=== PATIENT | male | born 1985 | race Caucasian/White ===

== ENCOUNTER 2021-03-14 14:02 | Emergency (ER) | payer MEDICAID ==
[2021-03-14 14:20] VITALS: O2SAT 97
[2021-03-14] MEDS ORDERED: Sodium Chloride 0.9% 1000 ML 1,000 ML IV STA (14:21)
[2021-03-14] MEDS ORDERED: Sodium Chloride 0.9% 1000 ML 1,000 ML ONE (14:27)
--- NOTE | 2021-03-14 14:54 | XRAY ---
Indication: Fever, cough, and short of breath. Comparison: None Portable chest hyperinflated and clear. Heart not enlarged. Bony thorax intact. Impression: Nonacute hyperinflated chest.
[2021-03-14 14:59] LABS: Hematocrit 48.1 % (42-50); Hemoglobin 15.8 gm/dl (12.5-18.0); Mean Cell Volume 87.1 fl (78-100); Mean Corpuscular Hemoglobin 28.6 pg (26-32); Mean Corpuscular Hgb Concent. 32.8 g/dl (32-36); Mean Platelet Volume 9.4 fl (7.5-11.0); Platelet Count 213 K/mm3 (150-450); Red Blood Count 5.52 M/mm3 (4.1-5.6); White Blood Count 7.6 K/mm3 (4.0-10.5)
[2021-03-14 15:11] LABS: INR 1.1 (0.8-3.0)
--- NOTE | 2021-03-14 15:16 | ERPHSYRPT ---
- History of Present Illness Time Seen by Provider: 03/14/21 14:25 Source: patient Exam Limitations: no limitations Patient Subjective Stated Complaint: pt here for covid like sypmtoms started yesterday morning, cough, aches, headache, nasuea, lost of taste and smell Triage Nursing Assessment: pt alert, walked in. resp easy, skin w/d/p, face mask in place, Physician History: Patient is a 35-year-old male who has been sick for 2 days. He complains of abdominal pain which has improved somewhat today but was worse yesterday he is also had repeated nausea vomiting. He has entire body aches he has a headache he has lost his sense of taste and smell he has had fever and sweats. 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 Associated Symptoms: abdominal pain, diaphoresis, headache, muscle aches, nausea/vomiting Hx Influenza Vaccination/Date Given: No Hx Pneumococcal Vaccination/Date Given: No Immunizations Up to Date: Yes Travel Risk - International Travel Have you traveled outside of the country in past 3 weeks: No - Coronavirus Screening Are you exhibiting any of the following symptoms?: Yes Symptoms: Cough: New Onset, Vomiting/Diarrhea, Loss of Taste or Smell, Headache s/Body Aches/Fatigue Close contact with a COVID-19 positive Pt in past 14-21 Days: No - Vaccine Status Have you recieved a Covid-19 vaccination: No - Review of Systems Constitutional: No Fever, No Chills Eyes: No Symptoms Ears, Nose, & Throat: No Symptoms Respiratory: No Cough, No Dyspnea Cardiac: No Chest Pain, No Edema, No Syncope Abdominal/Gastrointestinal: No Abdominal Pain, No Nausea, No Vomiting, No Diarrhea Genitourinary Symptoms: No Dysuria Musculoskeletal: No Back Pain, No Neck Pain Skin: No Rash Neurological: No Dizziness, No Focal Weakness, No Sensory Changes Psychological: No Symptoms Endocrine: No Symptoms All Other Systems: Reviewed and Negative - Past Medical History Pertinent Past Medical History: No - Past Surgical History Past Surgical History: No - Social History Smoking Status: Current every day smoker Exposure to second hand smoke: Yes Drug Use: none Patient Lives Alone: No - Nursing Vital Signs Nursing Vital Signs: Initial Vital Signs Temperature 98.7 F 03/14/21 14:18 Pulse Rate 107 H 03/14/21 14:18 Respiratory Rate 16 03/14/21 14:18 Blood Pressure 122/103 03/14/21 14:18 O2 Sat by Pulse Oximetry 97 03/14/21 14:18 Pain Scale Pain Intensity 4 - Physical Exam General Appearance: mild distress, alert Eye Exam: PERRL/EOMI ENT Exam: normal ENT inspection, No pharyngeal erythema, No tonsillar exudate Neck Exam: supple, full range of motion, No meningismus Respiratory Exam: normal breath sounds, lungs clear, no respiratory distress Cardiovascular/Chest Exam: normal heart sounds, regular rate/rhythm, No murmur, No edema Gastrointestinal/Abdominal Exam: soft, non tender, no distention Extremity Exam: non-tender, normal range of motion, normal inspection, normal capillary refill Neurologic Exam: alert, oriented x 3, cooperative, 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, normal mood/affect, sensation nml, No motor deficits Skin Exam: normal color, warm, dry, No rash SpO2: 97 - Course Nursing assessment & vital signs reviewed: Yes - Radiology Exams Chest X-ray Interpretation: Reviewed by me, Negative Ordered Tests: Active Orders 24 hr Category Date Time Status EKG-ER Only STAT Care 03/14/21 14:21 Active IV Insertion STAT Care 03/14/21 14:21 Active CHEST 1 VIEW (PORTABLE) Stat Exams 03/14/21 14:22 Completed BLOOD CULTURE Stat Lab 03/14/21 14:47 Received CBC W DIFF Stat Lab 03/14/21 14:35 Completed CMP Stat Lab 03/14/21 14:35 Completed D-DIMER QUANTITATIVE Stat Lab 03/14/21 14:35 Completed Lactic Acid Stat Lab 03/14/21 14:21 Completed MAGNESIUM Stat Lab 03/14/21 14:35 Completed Manual Differential NC Stat Lab 03/14/21 14:35 Completed NT PRO BNP Stat Lab 03/14/21 14:35 Completed PROTIME WITH INR Stat Lab 03/14/21 14:35 Completed TROPONIN Q3H Lab 03/14/21 14:35 Completed TROPONIN Q3H Lab 03/14/21 17:30 Ordered TROPONIN Q3H Lab 03/14/21 20:30 Ordered TROPONIN Q3H Lab 03/14/21 23:30 Ordered TROPONIN Q3H Lab 03/15/21 02:30 Ordered UA W/RFX UR CULTURE Stat Lab 03/14/21 14:30 Completed Medication Summary Discontinued Medications Generic Name Dose Route Start Last Admin Trade Name Flynn PRN Reason Stop Dose Admin Sodium Chloride 1,000 mls @ 999 mls/hr 03/14/21 14:21 03/14/21 15:29 Sodium Chloride 0.9% 1000 Ml IV 03/14/21 15:21 Infused .Q1H1M STA Infusion Sodium Chloride Confirm 03/14/21 14:27 Sodium Chloride 0.9% 1000 Ml Administered 03/14/21 14:28 Dose 1,000 mls @ ud .ROUTE .[facility] Lab/Rad Data: Laboratory Result Diagrams 03/14/21 14:35 03/14/21 14:35 Laboratory Results 03/14/21 03/14/21 03/14/21 Range/Units 14:35 14:35 14:35 WBC (4.0-10.5) K/mm3 RBC (4.1-5.6) M/mm3 Hgb (12.5-18.0) gm/dl Hct (42-50) % MCV (78-100) fl MCH (26-32) pg MCHC (32-36) g/dl RDW (11.5-14.0) % Plt Count (150-450) K/mm3 MPV (7.5-11.0) fl PT 13.0 H (9.4-12.5) SECONDS INR 1.10 (0.8-3.0) D-Dimer 654 H* (215-500) ng/mL Sodium 132 L (137-145) mmol/L Potassium 3.7 (3.5-5.1) mmol/L Chloride 96 L (98-107) mmol/L Carbon Dioxide 26 (22-30) mmol/L Anion Gap 13.5 (5-15) MEQ/L BUN 12 (9-20) mg/dL Creatinine 1.21 (0.66-1.25) mg/dL Estimated GFR > 60.0 ML/MIN Glucose 110 H (74-106) mg/dL Lactic Acid (0.4-2.0) Calcium 8.9 (8.4-10.2) mg/dL Magnesium 1.5 L (1.6-2.3) mg/dL Total Bilirubin 0.50 (0.2-1.3) mg/dL AST 36 (17-59) U/L ALT 22 (0-50) U/L Alkaline Phosphatase 68 (38-126) U/L Troponin I < 0.012 (0.000-0.034) ng/mL NT-Pro-B Natriuret Pep 19.7 (0-450) pg/mL Serum Total Protein 7.6 (6.3-8.2) g/dL Albumin 4.4 (3.5-5.0) g/dL Urine Color (YELLOW) Urine Appearance (CLEAR) Urine pH (5-6) Ur Specific [place] (1.005-1.025) Urine Protein (Negative) Urine Ketones (NEGATIVE) Urine Blood (0-5) Bin/ul Urine Nitrite (NEGATIVE) Urine Bilirubin (NEGATIVE) Urine Urobilinogen (0-1) mg/dL Ur Leukocyte Esterase (NEGATIVE) Urine WBC (Auto) (0-5) /HPF Urine RBC (Auto) (0-2) /HPF U Epithel Cells (Auto) (FEW) /HPF Urine Bacteria (Auto) (NEGATIVE) /HPF Urine Mucus (Auto) (NEGATIVE) /HPF Urine Culture Reflexed (NO) Urine Glucose (NEGATIVE) mg/dL Influenza Type A Ag (NEGATIVE) Influenza Type B Ag (NEGATIVE) RSV (PCR) (Negative) SARS-CoV-2 (PCR) (NEGATIVE) 03/14/21 03/14/21 03/14/21 Range/Units 14:35 14:30 14:30 WBC 7.6 (4.0-10.5) K/mm3 RBC 5.52 (4.1-5.6) M/mm3 Hgb 15.8 (12.5-18.0) gm/dl Hct 48.1 (42-50) % MCV 87.1 (78-100) fl MCH 28.6 (26-32) pg MCHC 32.8 (32-36) g/dl RDW 14.0 (11.5-14.0) % Plt Count 213 (150-450) K/mm3 MPV 9.4 (7.5-11.0) fl PT (9.4-12.5) SECONDS INR (0.8-3.0) D-Dimer (215-500) ng/mL Sodium (137-145) mmol/L Potassium (3.5-5.1) mmol/L Chloride (98-107) mmol/L Carbon Dioxide (22-30) mmol/L Anion Gap (5-15) MEQ/L BUN (9-20) mg/dL Creatinine (0.66-1.25) mg/dL Estimated GFR ML/MIN Glucose (74-106) mg/dL Lactic Acid (0.4-2.0) Calcium (8.4-10.2) mg/dL Magnesium (1.6-2.3) mg/dL Total Bilirubin (0.2-1.3) mg/dL AST (17-59) U/L ALT (0-50) U/L Alkaline Phosphatase (38-126) U/L Troponin I (0.000-0.034) ng/mL NT-Pro-B Natriuret Pep (0-450) pg/mL Serum Total Protein (6.3-8.2) g/dL Albumin (3.5-5.0) g/dL Urine Color YELLOW (YELLOW) Urine Appearance CLEAR (CLEAR) Urine pH 6.0 (5-6) Ur Specific [place] 1.017 (1.005-1.025) Urine Protein NEGATIVE (Negative) Urine Ketones NEGATIVE (NEGATIVE) Urine Blood SMALL (0-5) Bin/ul Urine Nitrite NEGATIVE (NEGATIVE) Urine Bilirubin NEGATIVE (NEGATIVE) Urine Urobilinogen 2 (0-1) mg/dL Ur Leukocyte Esterase NEGATIVE (NEGATIVE) Urine WBC (Auto) 0-2 (0-5) /HPF Urine RBC (Auto) 3-5 (0-2) /HPF U Epithel Cells (Auto) NONE (FEW) /HPF Urine Bacteria (Auto) NONE (NEGATIVE) /HPF Urine Mucus (Auto) SLIGHT (NEGATIVE) /HPF Urine Culture Reflexed NO (NO) Urine Glucose NEGATIVE (NEGATIVE) mg/dL Influenza Type A Ag NEGATIVE (NEGATIVE) Influenza Type B Ag NEGATIVE (NEGATIVE) RSV (PCR) NEGATIVE (Negative) SARS-CoV-2 (PCR) POSITIVE A (NEGATIVE) 03/14/21 Range/Units 14:21 WBC (4.0-10.5) K/mm3 RBC (4.1-5.6) M/mm3 Hgb (12.5-18.0) gm/dl Hct (42-50) % MCV (78-100) fl MCH (26-32) pg MCHC (32-36) g/dl RDW (11.5-14.0) % Plt Count (150-450) K/mm3 MPV (7.5-11.0) fl PT (9.4-12.5) SECONDS INR (0.8-3.0) D-Dimer (215-500) ng/mL Sodium (137-145) mmol/L Potassium (3.5-5.1) mmol/L Chloride (98-107) mmol/L Carbon Dioxide (22-30) mmol/L Anion Gap (5-15) MEQ/L BUN (9-20) mg/dL Creatinine (0.66-1.25) mg/dL Estimated GFR ML/MIN Glucose (74-106) mg/dL Lactic Acid 1.1 (0.4-2.0) Calcium (8.4-10.2) mg/dL Magnesium (1.6-2.3) mg/dL Total Bilirubin (0.2-1.3) mg/dL AST (17-59) U/L ALT (0-50) U/L Alkaline Phosphatase (38-126) U/L Troponin I (0.000-0.034) ng/mL NT-Pro-B Natriuret Pep (0-450) pg/mL Serum Total Protein (6.3-8.2) g/dL Albumin (3.5-5.0) g/dL Urine Color (YELLOW) Urine Appearance (CLEAR) Urine pH (5-6) Ur Specific [place] (1.005-1.025) Urine Protein (Negative) Urine Ketones (NEGATIVE) Urine Blood (0-5) Bin/ul Urine Nitrite (NEGATIVE) Urine Bilirubin (NEGATIVE) Urine Urobilinogen (0-1) mg/dL Ur Leukocyte Esterase (NEGATIVE) Urine WBC (Auto) (0-5) /HPF Urine RBC (Auto) (0-2) /HPF U Epithel Cells (Auto) (FEW) /HPF Urine Bacteria (Auto) (NEGATIVE) /HPF Urine Mucus (Auto) (NEGATIVE) /HPF Urine Culture Reflexed (NO) Urine Glucose (NEGATIVE) mg/dL Influenza Type A Ag (NEGATIVE) Influenza Type B Ag (NEGATIVE) RSV (PCR) (Negative) SARS-CoV-2 (PCR) (NEGATIVE) - Progress Progress: unchanged - Departure Departure Disposition: Home Clinical Impression: COVID-19 Condition: Good Critical Care Time: No Referrals: DOCTOR,NO FAMILY [Primary Care Provider] - Follow up/PCP as directed Instructions: Coronavirus Disease 2019 (COVID-19) (DC) Prescriptions: Dexamethasone 4 mg [Decadron 4 MG] 8 mg PO DAILY 7 Days #14 tablet Doxycycline Hyclate 100 mg [Vibramycin 100 MG] 100 mg PO BID #14 tab
[2021-03-14 15:26] LABS: ALBUMIN 4.4 g/dL (3.5-5.0); ALKALINE PHOSPHATASE 68 U/L (38-126); ANION GAP 13.5 MEQ/L (5-15); BLOOD UREA NITROGEN 12 mg/dL (9-20); CHLORIDE 96 mmol/L (98-107); Calcium 8.9 mg/dL (8.4-10.2); Carbon Dioxide 26 mmol/L (22-30); Creatinine 1 1.21 mg/dL (0.66-1.25); EST GLOMERULAR FILTRATION RATE > 60.0 ML/MIN; Glucose 110 mg/dL (74-106); MAGNESIUM 1.5 mg/dL (1.6-2.3); NT PRO BNP 19.7 pg/mL (0-450); Potassium 3.7 mmol/L (3.5-5.1); SGOT/AST 36 U/L (17-59); SGPT/ALT 22 U/L (0-50); SODIUM 132 mmol/L (137-145); Total Protein 7.6 g/dL (6.3-8.2)
[2021-03-14 15:38] LABS: INFLUENZA A NEGATIVE (NEGATIVE); INFLUENZA B NEGATIVE (NEGATIVE); RESPIRATORY SYNCTIAL VIRUS NEGATIVE (Negative)
[2021-03-14 15:47] LABS: SARS-CoV-2 Xpert Express POSITIVE (NEGATIVE)
[2021-03-14 15:49] LABS: Appearance CLEAR (CLEAR); Bilirubin NEGATIVE (NEGATIVE); Blood SMALL Ery/ul (0-5); Glucose NEGATIVE (NEGATIVE); Ketones NEGATIVE (NEGATIVE); Leukocyte Esterase NEGATIVE (NEGATIVE); Mucus SLIGHT /HPF (NEGATIVE); Nitrite NEGATIVE (NEGATIVE); Protein,Urine Dip NEGATIVE (Negative); Specific Gravity 1.017 (1.005-1.025); Urobilinogen 2 mg/dL (0-1); WBC 0-2 /HPF (0-5)
[2021-03-14 16:15] VITALS: BP 123/73; PULSE 80
[2021-03-14 23:17] LABS: Eosinophil 2 % (0.00-3.0); Lymphocytes 16 % (24-44); Monocyte 21 % (0.0-12.0); Neutrophils 61 % (36.-66.); Platelet Estimate NORMAL (NORMAL); Total Cells Counted 100
== END 2021-03-14 16:19 | disposition home or self-care (01) ==
LOC: ED 14:02
DX: U07.1 COVID-19 (principal); R10.84 Generalized abdominal pain; R11.2 Nausea with vomiting, unspecified; M79.10 Myalgia, unspecified site; R51.9 Headache, unspecified; R43.8 Other disturbances of smell and taste; R50.9 Fever, unspecified; Z72.0 Tobacco use; Z79.52 Long term (current) use of systemic steroids
CPT/HCPCS: 0241U; 36000; 36415; 71045; 80053; 81001; 83605; 83735; 83880; 84484; 85025; 85379; 85610; 86140; 87040; 93005; 99284